=== PATIENT | male | born 1970 | race Caucasian/White ===

== ENCOUNTER → 2024-09-18 06:02 | Outpatient (REF) | payer BC, SELFPAY ==
[2024-09-18 09:22] LABS: % Basophils 1.6 % (0-2); % Eosinophils 2.4 % (0-6); % Immature Granulocytes 1.2 % (0-0.5); % Lymphocytes 29.2 % (20.5-51.1); % Monocytes 8.9 % (1.7-9.3); % Neutrophils 56.7 % (42.2-75.2); Absolute Basophils 0.1 10^3/uL (0-0.2); Absolute Eosinophils 0.1 10^3/uL (0-0.7); Absolute Immature Granulocytes 0.1 10^3/uL (0-0.05); Absolute Lymphocytes 1.5 10^3/uL (1.2-3.4); Absolute Monocytes 0.5 10^3/uL (0.1-0.6); Absolute Neutrophils 2.9 10^3/uL (1.4-6.5); Hematocrit 43.9 % (39.0-52.0); Hemoglobin 14.2 g/dL (13.0-18.0); Mean Corp Hgb Conc. 32.3 g/dL (33.0-37.0); Mean Corpuscular Hgb 31.1 pg (27.0-31.0); Mean Corpuscular Volume 96.1 fL (80.0-94.0); Mean Platelet Volume 8.7 fL (7.4-10.4); Nucleated Red Blood Cells % 0 % (-); Platelet Count 254 10^3/uL (130-400); Red Blood Cell Count 4.57 10^6/uL (4.70-6.10); Red Cell Dist. Width 12.8 % (11.5-14.5)
[2024-09-18 09:31] LABS: ALT (SGPT) 79 U/L (0-50); AST (SGOT) 113 U/L (17-59); Albumin 4.6 g/dl (3.5-5.0); Alkaline Phosphatase 71 U/L (38-126); Blood Urea Nitrogen 11 mg/dl (9-20); Calcium 9.7 mg/dl (8.4-10.2); Carbon Dioxide 27 mmol/L (22-30); Chloride 100 mmol/L (98-107); Glucose 96 mg/dl (70-99); HDL Cholesterol 61 mg/dl; LDL Cholesterol, Calculated 148 mg/dl; Potassium 4.2 mmol/L (3.5-5.1); Sodium 138 mmol/L (135-145); Total Bilirubin 0.6 mg/dl (0.2-1.3); Total Cholesterol 238 mg/dl (50-199); Total Protein 7.5 g/dl (6.3-8.2); Triglyceride 146 mg/dl (10-149); Very Low Density Lipoprotein 29 mg/dl (0-30); eGFR > 60.00
[2024-09-18 09:48] LABS: Total Thyroxine 8.53 ug/dl (5.5-11.0); Vitamin D, 25-OH*** 19.6 ng/mL (30-80)
[2024-09-18 10:01] LABS: TSH 4.65 uIU/ml (0.47-4.68)
[2024-09-18 10:12] LABS: Glycohemoglobin (HgbA1c) 5.3 % (4.0-5.6)
[2024-09-19 22:12] LABS: PSA Total 0.6 ng/mL (0.0-4.0); Total T3 (Sendout) 131 ng/dL (80-200)
[2024-09-19 22:13] LABS: % Free Testosterone 1.9 % (1.6-2.9); Free Testosterone 42 pg/mL (47-244); Sex Hormone Binding Globulin 27 nmol/L (19-76); Total Testosterone 217 ng/dL (300-890)
== END ==
LOC: HWLAB 06:02
PROVIDERS: ATTENDING PHYSICIAN Internal Medicine
DX: Z12.5 Encounter for screening for malignant neoplasm of prostate (principal); N52.9 Male erectile dysfunction, unspecified; Z00.01 Encounter for general adult medical examination with abnormal findings; R53.83 Other fatigue; E78.5 Hyperlipidemia, unspecified; I10 Essential (primary) hypertension; R73.01 Impaired fasting glucose; E55.9 Vitamin D deficiency, unspecified; E03.8 Other specified hypothyroidism
CPT/HCPCS: 36415; 80053; 80061; 82306; 83036; 84153; 84154; 84270; 84402; 84403; 84436; 84443; 84480; 85025

== ENCOUNTER → 2025-05-07 06:45 | Outpatient (REF) | payer BC, SELFPAY | LOC: HWRAD 06:45 | PROVIDERS: ATTENDING PHYSICIAN Internal Medicine | DX: K70.0 Alcoholic fatty liver (principal) | CPT/HCPCS: 76700 ==

== ENCOUNTER → 2025-07-06 06:06 | Outpatient (REF) | payer BC, SELFPAY | LOC: HWLAB 06:06 | PROVIDERS: ATTENDING PHYSICIAN Specialist; FAMILY PHYSICIAN Internal Medicine | DX: E29.1 Testicular hypofunction (principal) | CPT/HCPCS: 36415; 83002; 84146; 84403 ==

== ENCOUNTER → 2025-08-04 10:08 | Outpatient (REF) | payer BC, SELFPAY ==
[2025-08-04 12:31] LABS: Hematocrit 43.9 % (39.0-52.0); Hemoglobin 14.9 g/dL (13.0-18.0); Mean Corp Hgb Conc. 33.9 g/dL (33.0-37.0); Mean Corpuscular Volume 93.2 fL (80.0-94.0); Nucleated Red Blood Cells % 0 % (-); Platelet Count 274 10^3/uL (130-400); Red Cell Dist. Width 12.0 % (11.5-14.5)
[2025-08-04 12:40] LABS: ALT (SGPT) 18 U/L (0-50); AST (SGOT) 29 U/L (17-59); Albumin 4.5 g/dl (3.5-5.0); Alkaline Phosphatase 91 U/L (38-126); Blood Urea Nitrogen 13 mg/dl (9-20); Calcium 9.9 mg/dl (8.4-10.2); Carbon Dioxide 25 mmol/L (22-30); Chloride 103 mmol/L (98-107); Glucose 96 mg/dl (70-99); HDL Cholesterol 71 mg/dl; LDL Cholesterol, Calculated 47 mg/dl; Potassium 4.2 mmol/L (3.5-5.1); Sodium 137 mmol/L (135-145); Total Protein 7.2 g/dl (6.3-8.2); Very Low Density Lipoprotein 67 mg/dl (0-30); eGFR > 60.00
== END ==
LOC: HWLAB 10:08
PROVIDERS: ATTENDING PHYSICIAN Internal Medicine
DX: Z00.01 Encounter for general adult medical examination with abnormal findings (principal); R53.83 Other fatigue; I10 Essential (primary) hypertension; E78.2 Mixed hyperlipidemia; R79.89 Other specified abnormal findings of blood chemistry
CPT/HCPCS: 36415; 80053; 80061; 85025